=== PATIENT | male | born 1975 | race African-American/Black ===

== ENCOUNTER 2017-03-28 09:48 | Emergency (ER) | payer SELFPAY ==
--- NOTE | 2017-03-28 13:53 | RAD ---
AP VIEW PELVIS: Date: 03/28/17 HISTORY: Fall. FINDINGS: AP view pelvis obtained. The pelvis is unremarkable. No evidence of pelvic fractures, subluxations, o r bony lesions seen. IMPRESSION: Unremarkable AP view pelvis. POS: [facility]
== END 2017-03-28 13:49 | disposition home or self-care (01) ==
LOC: ERS 09:48
DX: S30.0XXA Contusion of lower back and pelvis, initial encounter (principal); S70.02XA Contusion of left hip, initial encounter; F17.210 Nicotine dependence, cigarettes, uncomplicated; Z71.6 Tobacco abuse counseling; W01.0XXA Fall on same level from slipping, tripping and stumbling without subsequent striking against object, initial encounter
CPT/HCPCS: 72170; 99406